=== PATIENT | male | born 1985 | race African-American/Black ===

== ENCOUNTER 2021-01-27 02:39 | Emergency (ER) | payer OTHER ==
[~2021-01-27] VITALS: Ht 180.3 cm; Wt 122.7 kg
[2021-01-27] MEDS ORDERED: LIDOCAINE (700MG/PATCH) PATCH. TD SCH (03:34)
[2021-01-27] MEDS ORDERED: KETOROLAC 60 MG/2 ML VIAL. IM ONE (03:45)
[2021-01-27] MEDS ORDERED: diazePAM 5 MG TABLET PO ONE (03:45)
[2021-01-27] MEDS ORDERED: METH-561 PO (03:48)
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
[2021-01-27] MEDS ORDERED: PRED50TA PO (04:51)
[2021-01-27 04:52] VITALS: BP 157/113
== END 2021-01-27 04:55 | disposition home or self-care (01) ==
LOC: ER 02:39
DX: S29.012A Strain of muscle and tendon of back wall of thorax, initial encounter (principal); F17.200 Nicotine dependence, unspecified, uncomplicated; V43.62XA Car passenger injured in collision with other type car in traffic accident, initial encounter; Y92.488 Other paved roadways as the place of occurrence of the external cause; Y93.89 Activity, other specified; Y99.8 Other external cause status
CPT/HCPCS: 96372; 99285; J1885